=== PATIENT | male | born 1945 | race Caucasian/White ===

== ENCOUNTER → 2018-12-05 | Outpatient (CLI) | payer OTHER, MEDICARE ==
[~2018-12-05] VITALS: Ht 180.3 cm; Wt 67.9 kg
[~2018-12-05] MED LIST: ALEVE220 M1 PO; ASPIR 8181 MG PO; CENTRUM SILVER1 EAC4 PO; CO Q-10100 MG PO; FISH OIL 1,001000 M2 PO; HYDROCODONE-AP1 EAC6 PO; LEVOTHYROXIN0.112 M1 PO; LIPITOR10 MG PO; LISINOPRIL2.5 MG PO; TIMOLOL MA0.25 %/5 M OP; TRAMADOL 50 MG50 MG PO; TURMERIC500 M2 PO; XALATAN2.5 ML OPHTHALMIC
--- NOTE | ~2018-12-05 | HPC ---
[facility] [address] [place] [address] PAIN MANAGEMENT CONSULTATION Name: ELYSE COHEN Kalyn Room #: REG [facility].#: [id number] Admission: 12/05/18 ������������������ Attend Phys: Uriah Donaldson DO Discharge: ������������������ Date of : 47 Report #: [id number] THIS REPORT FOR: //name// CC: Uriah NAIDU Physician staff Diaz Salmon MD DATE OF SERVICE: 12/05/2018 CHIEF COMPLAINT: Left upper buttock pain. HISTORY OF PRESENT ILLNESS: As you know, the patient is a 73-year-old male followed by my partner, Dr. Diaz Salmon for SI joint dysfunction. He returns today in followup visit requesting to undergo next in the series of SI joint injections under fluoroscopic guidance. The previous SI joint injection gave 60% improvement in overall pain lasting for nearly two months. Unfortunately, the patient's symptoms have begun to return. He returns to undergo next in the series of SI joint injections. He denies injury or trauma that may have led to symptom recurrence. ALLERGIES: No known drug allergies. CURRENT MEDICATIONS: Hydrocodone, timolol, multivitamin, Coenzyme Q, aspirin, atorvastatin, levothyroxine, lisinopril. SOCIAL HISTORY: The patient denies tobacco, alcohol, IV or illicit drug use. He is unaccompanied today. IMAGING: No new imaging available. 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 Mild noted hip osteoarthritis. Pain intensity today is reported 4/10. He does not have any rheumatoid arthritis. He is not a fall risk, has not had a fall in last three months. He is not on blood thinners. He is treated for hypertension. He has not been on long-term opioid medications. His pain assessment 35/70, moderate interference of daily activities secondary to pain. PHYSICAL EXAMINATION: VITAL SIGNS: Blood pressure 124/68, pulse 50, respiratory rate 14 and unlabored. The patient is 100% on room air. Height 5 feet 11 inches tall, weight 149.6 pounds, BMI calculated 20.9. GENERAL: Well-developed, well-nourished, well-hydrated 73-year-old male, appearing stated age, placing current pain score 4/10. HEENT: Normocephalic, atraumatic. Pupils equal, round, reactive to light. [address] [address] PAIN MANAGEMENT CONSULTATION Name: ELYSE COHEN Kalyn Room #: [facility].#: [id number] Admission: 12/05/18 ������������������ Attend Phys: Uriah Donaldson DO Discharge: ������������������ Date of : 47 Report #: [id number] EXTREMITIES: Show no clubbing, no cyanosis, and no edema. MUSCULOSKELETAL: The patient has again tenderness to palpation over the left SI joint when compared to the right. Seated position causes intensification of pain adding pressure to the left, negative on the right. Seated straight leg raising negative. Supine straight leg raising positive only on the left for SI joint dysfunction. No radicular component. Kiel's test is positive for SI joint dysfunction, no intrinsic left hip pathology. ASSESSMENT: 1. Left sacroiliac joint dysfunction. 2. Chronic intractable pain. PLAN: 1. The patient returns today in followup visit to undergo next in the series of left SI joint injections. The patient was placed on my schedule today as the patient was unable to be seen by Dr. Salmon who is unavailable at this time. He returns to undergo SI joint injection in hopes of improving pain as he sought with the previous SI joint injection of 60% or greater. He has denied any new injury or trauma that may have led to symptom recurrence. He has been advised risks and benefits of the procedure, states he understood and wished to proceed. 2. No medication management changes made at today's visit. The patient will continue current medical therapy. 3. The patient will return to see Dr. Salmon for future treatments. ��������������������������������������������� ���������������������������������������� By: ��������������������������������������������� 1048 1410 Uriah Donaldson, DO /nt
--- NOTE | ~2018-12-05 | P ---
[facility] [place] [address] PROCEDURE REPORT Name: COHENELYSE Room #: REG [facility].#: [id number] Admission: 12/05/18 ������������������ Attend Phys: Uriah Donaldson DO Discharge: ������������������ Date of : 47 Report #: [id number] THIS REPORT FOR: //name// CC: Uriah NAIDU Physician staff Diaz Salmon MD DATE OF SERVICE: 12/05/2018 DESCRIPTION OF PROCEDURE: Left SI joint injection under fluoroscopic guidance. This is the second procedure of the first series that the patient is undergoing. After obtaining written consent, the patient was taken back to the fluoroscopy suite and placed in a prone position with a pillow under the pelvis to decrease the lumbar lordosis. The skin of the gluteal-sacral area overlying the left sacroiliac joint was prepped and draped in an aseptic fashion. A medial to lateral oblique projection allowed separation of the anterior and posterior branches of the joint space. The skin and subcutaneous tissue overlying the target site of injection was anesthetized using 3 mL of 1% lidocaine. A 20-gauge 3-1/2-inch needle with a bent tip was directed into the inferior aspect of the sacroiliac joint using a posterior approach. A giving way at the needle hub was noted once the dorsal sacroiliac and interosseous ligaments were engaged. After negative aspiration for heme, a total of 0.5 mL of Omnipaque was injected, outlining the coin-shaped inferior recess of the joint. Provocation responses consisting of intense buttock pain were negative. After negative aspiration for heme, 3 mL of a solution containing 1 mL 40 mg per mL, 40 mg total triamcinolone, 2 mL bupivacaine 0.5% was slowly injected. The needle was then retracted approximately usp and the needle track was flushed with 1 mL of bupivacaine 0.5%. Needle was then removed. A sterile bandage was placed over the injection site. There were no new sensory deficits present in the lower extremities. The heart rate, pulse oximetry and blood pressure were continuously monitored after the procedure. There were no apparent complications. The patient tolerated the procedure well and was carefully escorted to the recovery room in stable condition. The VAS was 4/10 before the procedure and 0/10 ten minutes after the procedure. After meeting discharge criteria, the patient was discharged home. ��������������������������������������������� ���������������������������������������� By: ��������������������������������������������� 1048 1414 Uriah Donaldson DO /nt
[2018-12-05 10:08] VITALS: BP 124/68
--- NOTE | 2018-12-05 10:24 | NUR ---
Pain Clinic Assessment: 1. History of Osteoarthritis: DENIES History of Rheumatoid Arthritis: DENIES 2. Height: 5 ft. 11 in. 180.3 cm. Weight: 149.6 lb. oz. 67.858 kg. Patient's BMI: 20.9 3. Vital Signs: BP: 124/68 Pulse: 50 Resp: 14 Temp: 02 Sat: 100 ECG Mon: 4. Pain Intensity: 4 5. Fall Risk: Dizziness: N Needs help standing or walking: N Fallen in the last 3 months: N Fall risk comments: 6. Patient on Blood Thinner: None 7. History of Hypertension: N 8. Opioid Therapy greater than 6 weeks: N Opiate Contract Signed: 9. Risk Assessment Tool Provided: 10. Functional Assessment Tool: 11. Recreational Drug Use: Never Drug Type: Tobacco Use: Former Smoker Tobacco Type: Amount or Packs/day: How Many Years: Alcohol Use: Yes Frequency: Weekly Quant: 2-3 WINE
== END | disposition home or self-care (01) ==
LOC: PAIN 06:46
DX: M53.3 Sacrococcygeal disorders, not elsewhere classified (principal); G89.29 Other chronic pain; M19.90 Unspecified osteoarthritis, unspecified site; I10 Essential (primary) hypertension; Z79.891 Long term (current) use of opiate analgesic; Z79.899 Other long term (current) drug therapy; Z87.891 Personal history of nicotine dependence; Z79.82 Long term (current) use of aspirin

== ENCOUNTER → 2020-03-17 | Outpatient (CLI) | payer OTHER, MEDICARE ==
[~2020-03-17] VITALS: Ht 180.3 cm; Wt 66.6 kg
[~2020-03-17] MED LIST changes: +MAGNESIUM250 M1 PO
--- NOTE | ~2020-03-17 | HPC ---
[facility] [place] [address] PAIN MANAGEMENT CONSULTATION Name: ELYSE COHEN Kalyn Room #: REG [facility].#: [id number] Admission: 03/17/20 Attend Phys: Uriah Donaldson DO Discharge: Date of : 47 Report #: [id number] THIS REPORT FOR: cc: JACQUELYN MONSON Physician not on staff Uriah Donaldson DO ~ CC: Uriah NAIDU Physician staff JACQUELYN MONSON DATE OF SERVICE: 03/17/2020 REFERRING PHYSICIAN: Dr. Anselmo Naidu. CHIEF COMPLAINT: Left sacroiliac joint pain. HISTORY OF PRESENT ILLNESS: As you know, the patient is a very pleasant 75-year-old male who has returned today in followup visit with recurrent left SI joint dysfunction. The patient states he was doing very well after the injection provided at our visit of 12/05/2018. He states he was involved in doing yard work and picking up branches and leaves around his home when he began to experience symptoms. He did not discontinue the activity, but continued to complete his yard when his intensity of pain increased significantly now 9/10. He returns today in followup visit, denying any specific injury or trauma, but admitting to possible overuse of the SI joint causing his symptom reoccurrence. The patient returns today with pain level of 9/10. He reports the previous SI joint injection, gave 100% improvement in overall pain until recently where he exacerbated symptoms while trimming his trees and picking up the leaves. ALLERGIES: No known drug allergies. CURRENT MEDICATIONS: Magnesium 250 mg once a day, turmeric root extract 500 mg once a day, latanoprost 1 drop each eye per day, timolol 1 drop each eye per day, multivitamin 1 tab per day, Coenzyme Q10 100 mg once a day, aspirin 81 mg per day, atorvastatin 10 mg once a day, Synthroid 112 mcg per day. SOCIAL HISTORY: The patient denies tobacco, alcohol, IV or illicit drug use. He is unaccompanied at today's visit. IMAGING: No new imaging available. PQRS: The patient has known arthritic changes of the lumbar spine, bilateral sacroiliac joints, left greater than right and bilateral hips and knees. No rheumatoid arthritis. He is placing current pain score at 9/10. He is not a fall risk, has not had a fall in last 3 months. He is not on blood thinners, [address] [address] PAIN MANAGEMENT CONSULTATION Name: ELYSE COHEN Kalyn [id number] Admission: 03/17/20 Attend Phys: Uriah Donaldson DO Discharge: Date of : 47 Report #: [id number] nor is he treated for hypertension. He is not on chronic opioids, has a low opioid addiction potential. Pain impact today rated at 50/70, severe interference of daily activities secondary to pain. PHYSICAL EXAMINATION: VITAL SIGNS: Blood pressure 200/110, pulse is 52, respiratory rate 16 and unlabored. The patient is 100% on room air. Height 5 feet 11 inches tall, weight 146.8 pounds, BMI calculated 20.5. GENERAL: Well-developed, well-nourished, well-hydrated, thin, 75-year-old male appearing stated age, pain is rated today 9/10. HEENT: Normocephalic, atraumatic. Pupils equal, round and reactive. Speech fluent for patient. EXTREMITIES: Show no clubbing, no cyanosis. No appreciable edema. MUSCULOSKELETAL: The patient has palpatory tenderness directly over the SI joint on the left, negative right. No palpatory tenderness over the facet joints of the lumbar spine. Seated straight leg raising negative. Supine straight leg raising is negative. Kiel's is positive only for left SI joint dysfunction. Ankle clonus negative. Babinski is negative. ASSESSMENT: 1. Left sacroiliac joint dysfunction. 2. Recurrent left sacroiliac joint pain. PLAN: 1. The patient returns today in followup visit having done very well with previous SI joint injection, near 100% improvement in overall pain until just recently where he was involved in trimming trees and picking up bushes and leaves around his home where he noticed exacerbation of his left SI joint pain. He made today's appointment to undergo left SI joint injection under fluoroscopic guidance given his excellent benefit from the previous injection. He indicates no other known injury or trauma that may have led to symptom reoccurrence. The patient has been advised of the risks and the benefits of a left SI joint injection. He states he understood and wished to proceed. 2. The patient's blood pressure noted to be 200/110 with repeat blood pressures in the 190 systolic range and 90-100 diastolic range. The patient states that he checks his blood pressure at home every day and it is not that high. I am concerning of a miscalibrated home unit. We performed all blood pressures on automated systems as well as manual systems with concurrence in our findings. We recommend the patient to follow up with his PCP as quickly as possible. He is denying any headache, vision changes, flushing sensations, changes within his ears consistent with elevated blood pressure. He has requested to be discharged home to take his blood pressure medication. Apparently, these were recently stopped. I do feel a followup with his pals specialist is warranted. The patient was agreeable with the plan, stating he did not wish to go to the Emergency Department with this elevated blood pressure that he wished to treat this at home on his own, but understands his risks have been doing so. I have requested [facility] [address] [place] [address] PAIN MANAGEMENT CONSULTATION Name: ELYSE COHEN Kalyn Room #: REG [facility].#: [id number] Admission: 03/17/20 Attend Phys: Uriah Donaldson DO Discharge: Date of : 47 Report #: [id number] the patient contact our clinic tomorrow to advise us of the level of blood pressure and the plan for treatment. 3. We will see the patient back in followup visit for a SI joint injection on an as needed basis. PROCEDURE NOTE DESCRIPTION OF PROCEDURE: Left sacroiliac joint injection under fluoroscopic guidance. This is the third procedure of the first series that the patient is undergoing. After obtaining written consent, the patient was taken back to the fluoroscopy suite and placed in a prone position with a pillow under the pelvis to decrease the lumbar lordosis. The skin of the gluteal-sacral area overlying the left sacroiliac joint was prepped and draped in an aseptic fashion. A medial to lateral oblique projection allowed separation of the anterior and posterior branches of the joint space. The skin and subcutaneous tissue overlying the target site of injection was anesthetized using 3 mL of 1% lidocaine. A 22-gauge 3-1/2 inch needle with a bent tip was directed into the inferior aspect of the sacroiliac joint using a posterior approach. A giving way at the needle hub was noted once the dorsal sacroiliac and interosseous ligaments were engaged. After negative aspiration for heme, a total of 0.4 mL of Omnipaque was injected, outlining the coin-shaped inferior recess of the joint. Provocation responses consisting of intense buttock pain were negative. After negative aspiration for heme, 3 mL of a solution containing 1 mL 40 mg per mL, 40 mg of total triamcinolone, 2 mL of bupivacaine 0.5% was slowly injected. The needle was then retracted approximately fci and the needle track was flushed with 1 mL of 1% lidocaine. Needle was then removed. A sterile bandage was placed over the injection site. There were no new sensory deficits present in the lower extremities. The heart rate, pulse oximetry and blood pressure were continuously monitored after the procedure. There were no apparent complications. The patient tolerated the procedure well and was carefully escorted to the recovery room in stable condition. The VAS was 9/10 before the procedure and 0/10 minutes after the procedure. After meeting discharge criteria, the patient was discharged home. By: 1224 [id number] Uriah Donaldson DO /nt
[2020-03-17 13:09] VITALS: BP 200/110
--- NOTE | 2020-03-17 13:42 | NUR ---
Pain Clinic Assessment: 1. History of Osteoarthritis: DENIES History of Rheumatoid Arthritis: DENIES 2. Height: 5 ft. 11 in. 180.3 cm. Weight: 146.8 lb. oz. 66.588 kg. Patient's BMI: 20.5 3. Vital Signs: BP: 200/110 Pulse: 52 Resp: 16 Temp: 02 Sat: 100 ECG Mon: 4. Pain Intensity: 9 W/ACTIVITY 5. Fall Risk: Dizziness: N Needs help standing or walking: N Fallen in the last 3 months: N Fall risk comments: 6. Patient on Blood Thinner: None 7. History of Hypertension: N 8. Opioid Therapy greater than 6 weeks: N Opiate Contract Signed: 9. Risk Assessment Tool Provided: 10. Functional Assessment Tool: 11. Recreational Drug Use: Never Drug Type: Tobacco Use: Former Smoker Tobacco Type: Cigarettes Amount or Packs/day: How Many Years: Alcohol Use: Yes Frequency: Weekly Quant: 1-2
== END | disposition home or self-care (01) ==
LOC: PAIN 07:01
PROVIDERS: ATTEND Anesthesiology Pain Medicine
DX: M53.3 Sacrococcygeal disorders, not elsewhere classified (principal); G89.29 Other chronic pain; M19.90 Unspecified osteoarthritis, unspecified site; Z98.890 Other specified postprocedural states; Z87.891 Personal history of nicotine dependence